=== PATIENT | male | born 1990 | race Two or more races ===

== ENCOUNTER 2019-09-12 14:27 | Inpatient (IN) | payer OTHER ==
[~2019-09-12] VITALS: Ht 177.8 cm; Wt 134.6 kg
[2019-09-12] MEDS ORDERED: LISI-167 PO (14:47)
[2019-09-12 14:50] LABS: BASOPHILS % (AUTO) 1 % (0-1); EOSINOPHILS # (AUTO) 0.14 x10^3/uL (0-0.4); EOSINOPHILS % (AUTO) 1 % (1-7); LYMPHOCYTES # (AUTO) 2.85 x10^3/uL (1-3.4); LYMPHOCYTES % (AUTO) 23 % (22-44); MD NO; MEAN CORPUSCULAR HEMOGLOBIN 27.5 pg (27.5-34.5); MEAN CORPUSCULAR HGB CONC 32.8 g/dL (33.2-36.2); MEAN CORPUSCULAR VOLUME 83.7 fL (81-97); MEAN PLATELET VOLUME 8.9 fL (7.4-10.4); MONOCYTES % (AUTO) 4 % (2-9); NEUTROPHILS # (AUTO) 8.81 x10^3/uL (1.8-6.8); NEUTROPHILS % (AUTO) 71 % (42-75); PLATELET COUNT 311 x10^3/uL (130-400); RED BLOOD COUNT 6.25 x10^6/uL (4.38-5.82); RED CELL DISTRIBUTION WIDTH 14.5 % (9.4-14.8)
[2019-09-12 15:03] LABS: ANION GAP 7 mmol/L (5-15); CALCIUM 8.8 mg/dL (8.5-10.1); CHLORIDE 105 mmol/L (98-107); CREATININE 1.18 mg/dL (0.7-1.3)
[2019-09-12 15:07] LABS: TROPONIN I < 0.015 ng/mL (0.000-0.045)
[2019-09-12] MEDS ORDERED: ENALAPRILAT 1.25 MG/ML, 1ML ONE (15:14)
[2019-09-12] MEDS ORDERED: hydrALAzine 20 MG/ML, 1ML ONE ×2 (15:14→16:39)
[2019-09-12] MEDS ORDERED: ASPIRIN 81 MG TABLET CHEW ONE (15:14)
--- NOTE | 2019-09-12 15:29 | NUR ---
IV START, LABS SENT, MEDS ADMINISTERED, REPORT TO JANETH CARTER. AWARE OF NITRO ORDER SHOULD OTHER BP MEDS NOT WORK. PT SITTING UP IN BED WATCHING TELEVISION.
[2019-09-12] MEDS ORDERED: SODIUM CHLORIDE FLUSH 10ML SYR IVF ONE (15:30)
[2019-09-12] MEDS ORDERED: hydrALAzine 20 MG/ML, 1ML IV ONE ×2 (15:30→17:00)
[2019-09-12] MEDS ORDERED: ENALAPRILAT 1.25 MG/ML, 2ML IV ONE (15:30)
[2019-09-12] MEDS ORDERED: ASPIRIN 81 MG TABLET CHEW PO ONE (15:30)
[2019-09-12] MEDS ORDERED: NITROGLYCERIN SINGLE TAB 0.4 MG SL PRN (15:30)
[2019-09-12] MEDS ORDERED: NITROGLYCERIN SINGLE TAB 0.4 MG SL ONE (15:50)
--- NOTE | 2019-09-12 15:51 | NUR ---
REPORT RECEIVED EUFEMIA. NITRO PER NOV. PT STS HIS NORMAL BP IS 170/90. DENIES BLURRY VISION/DIZZY/BRYSON. CALL CHOU IN REACH.
--- NOTE | 2019-09-12 16:43 | NUR ---
BP HIGH, MD NOTIFIED, ANTICIAPTE ADMIT. CONTINUES TO DENY DIZZY/BLURRY VISION/NAUSEA.
--- NOTE | 2019-09-12 17:11 | NUR ---
2ND DOSE HYDRALAZINE, PT TO BE ADMITTED.
--- NOTE | 2019-09-12 17:49 | NUR ---
BP SLIGHTLY IMPROVED, ASYMPTOMATIC. PT TO BE ADMITTED, AWARE AND AGREES.
[2019-09-12] MEDS ORDERED: SODIUM CHLORIDE FLUSH 10ML SYR IVF PRN (18:00)
--- NOTE | 2019-09-12 18:56 | NUR ---
REPORT TO JLUIS FOWLER.
[2019-09-12] MEDS ORDERED: NITROGLYCERIN 0.4 MG/SPRAY SL PRN (19:30)
[2019-09-12] MEDS ORDERED: ENALAPRILAT 1.25 MG/ML, 2ML IVPush PRN (19:30)
[2019-09-12] MEDS ORDERED: hydrALAzine 20 MG/ML, 1ML IVPush PRN (19:30)
[2019-09-12] MEDS ORDERED: MORPHINE SULFATE 4 MG/ML, 1ML IVPush PRN (19:30)
[2019-09-12] MEDS ORDERED: LABETALOL 5MG/ML, 20ML IVPush PRN (19:30)
[2019-09-12] MEDS ORDERED: POTASSIUM CHLORIDE 20 MEQ TAB.ER.PRT PO ONE (19:30)
[2019-09-12] MEDS ORDERED: NITROGLYCERIN 0.4 MG BOTTLE (25 TABS) SL PRN (19:30)
[2019-09-12] MEDS ORDERED: ACETAMINOPHEN 325 MG TABLET PO PRN (19:30)
[2019-09-12] MEDS ORDERED: PROMETHAZINE 25 MG/ML, 1ML IM PRN (19:30)
[2019-09-12] MEDS ORDERED: MAGNESIUM SULFATE PMX 2GM/50ML 50 ML IV ONE (19:34)
[2019-09-12 20:21] VITALS: BP 179/95
[2019-09-12 20:38] LABS: TROPONIN I 0.051 ng/mL (0.000-0.045)
[2019-09-12] MEDS: ENOXAPARIN 40 MG/0.4 ML SQ SCH (20:45)
[2019-09-12] MEDS ORDERED: LISINOPRIL 10 MG TABLET PO SCH (21:00)
[2019-09-12 21:56] LABS: MICROSCOPIC AUTO
[2019-09-12 22:00] LABS: CULTURE INDICATED? NO
[2019-09-12] MEDS ORDERED: OMNIPAQUE 350 MG/ML, 100ML BOTTLE ONE (23:18)
[2019-09-12] MEDS ORDERED: FLU VACC QS2019-20 36MOS UP/PF 0.5 ML IM-VACC ONE (23:30)
[2019-09-13 00:15] VITALS: BP 158/101
[2019-09-13 01:53] LABS: BASOPHILS # (AUTO) 0.07 x10^3/uL (0-0.1); BASOPHILS % (AUTO) 1 % (0-1); EOSINOPHILS % (AUTO) 3 % (1-7); LYMPHOCYTES # (AUTO) 2.69 x10^3/uL (1-3.4); LYMPHOCYTES % (AUTO) 23 % (22-44); MD NO; MEAN CORPUSCULAR HEMOGLOBIN 27.3 pg (27.5-34.5); MEAN CORPUSCULAR HGB CONC 33.4 g/dL (33.2-36.2); MEAN CORPUSCULAR VOLUME 81.9 fL (81-97); MEAN PLATELET VOLUME 9.2 fL (7.4-10.4); MONOCYTES # (AUTO) 0.68 x10^3/uL (0.2-0.8); MONOCYTES % (AUTO) 6 % (2-9); NEUTROPHILS # (AUTO) 7.89 x10^3/uL (1.8-6.8); NEUTROPHILS % (AUTO) 68 % (42-75); PLATELET COUNT 269 x10^3/uL (130-400); RED BLOOD COUNT 5.85 x10^6/uL (4.38-5.82); RED CELL DISTRIBUTION WIDTH 14.6 % (9.4-14.8)
[2019-09-13 02:06] LABS: ALANINE AMINOTRANSFERASE 39 U/L (12-78); ALBUMIN 3.3 g/dL (3.4-5.0); ANION GAP 8 mmol/L (5-15); CALCIUM 8.5 mg/dL (8.5-10.1); CHLORIDE 105 mmol/L (98-107); CREATININE 1.04 mg/dL (0.7-1.3)
[2019-09-13 02:14] LABS: ALKALINE PHOSPHATASE 81 U/L (45-117); BILIRUBIN,TOTAL 0.7 mg/dL (0.2-1.0); CHOL/HDL RATIO 5.8; CHOLESTEROL, TOTAL 203 mg/dL (140-239); HDL CHOL % 17 % (26-37); HDL CHOLESTEROL (DIRECT) 35 mg/dL (40-60); TOTAL PROTEIN 7.3 g/dL (6.4-8.2); TRIGLYCERIDES 413 mg/dL (50-200)
[2019-09-13 08:21] VITALS: BP 159/101
[2019-09-13] MEDS ORDERED: REGADENOSON 0.4 MG/5 ML SYRINGE ONE (08:50)
[2019-09-13] MEDS: LISINOPRIL 20 MG TABLET PO SCH ×2 (09:11→20:27)
[2019-09-13] MEDS: ASPIRIN 81 MG TABLET CHEW PO SCH (09:11)
[2019-09-13 13:13] VITALS: BP 166/91
[2019-09-13] MEDS ORDERED: POTASSIUM CHLORIDE 20 MEQ TAB.ER.PRT ONE (15:04)
[2019-09-13] MEDS: POTASSIUM CHLORIDE 20 MEQ TAB.ER.PRT PO SCH ×2 (15:08→17:13)
[2019-09-13 18:09] LABS: CHLORIDE,URINE RANDOM 22 mmol/L; POTASSIUM,URINE RANDOM 11 mmol/L; SODIUM,URINE RANDOM 29 mmol/L
[2019-09-13 19:14] VITALS: BP 165/109
[2019-09-13] MEDS: ENOXAPARIN 40 MG/0.4 ML SQ SCH (20:27)
[2019-09-14 02:09] VITALS: BP 134/84
[2019-09-14 07:03] LABS: BASOPHILS # (AUTO) 0.04 x10^3/uL (0-0.1); BASOPHILS % (AUTO) 0 % (0-1); EOSINOPHILS # (AUTO) 0.37 x10^3/uL (0-0.4); EOSINOPHILS % (AUTO) 4 % (1-7); LYMPHOCYTES # (AUTO) 1.88 x10^3/uL (1-3.4); LYMPHOCYTES % (AUTO) 19 % (22-44); MD NO; MEAN CORPUSCULAR HEMOGLOBIN 27.5 pg (27.5-34.5); MEAN CORPUSCULAR HGB CONC 33.3 g/dL (33.2-36.2); MEAN CORPUSCULAR VOLUME 82.6 fL (81-97); MEAN PLATELET VOLUME 9.4 fL (7.4-10.4); MONOCYTES # (AUTO) 0.57 x10^3/uL (0.2-0.8); MONOCYTES % (AUTO) 6 % (2-9); NEUTROPHILS % (AUTO) 70 % (42-75); PLATELET COUNT 240 x10^3/uL (130-400); RED BLOOD COUNT 5.56 x10^6/uL (4.38-5.82); RED CELL DISTRIBUTION WIDTH 14.4 % (9.4-14.8)
[2019-09-14 07:19] LABS: CHLORIDE 108 mmol/L (98-107)
[2019-09-14 07:28] VITALS: BP 122/80
[2019-09-14] MEDS: POTASSIUM CHLORIDE 20 MEQ TAB.ER.PRT PO SCH (07:32)
[2019-09-14] MEDS: ASPIRIN 81 MG TABLET CHEW PO SCH (07:33)
[2019-09-14 07:36] LABS: ANION GAP 6 mmol/L (5-15); CALCIUM 8.8 mg/dL (8.5-10.1); CREATININE 1.18 mg/dL (0.7-1.3)
[2019-09-14] MEDS ORDERED: POTASSIUM CHLORIDE 20 MEQ TAB.ER.PRT PO ONE ×2 (08:30→11:30)
[2019-09-14] MEDS: LISINOPRIL 20 MG TABLET PO SCH ×2 (09:15→20:57)
[2019-09-14 14:02] VITALS: BP 147/75
[2019-09-14] MEDS: SPIRONOLACTONE 25 MG TABLET PO SCH (15:35)
[2019-09-14 19:02] VITALS: BP 148/91
[2019-09-14] MEDS: ENOXAPARIN 40 MG/0.4 ML SQ SCH (20:57)
[2019-09-15 01:28] VITALS: BP 130/84
[2019-09-15 05:52] LABS: BASOPHILS # (AUTO) 0.03 x10^3/uL (0-0.1); BASOPHILS % (AUTO) 0 % (0-1); EOSINOPHILS # (AUTO) 0.42 x10^3/uL (0-0.4); EOSINOPHILS % (AUTO) 4 % (1-7); LYMPHOCYTES # (AUTO) 2.41 x10^3/uL (1-3.4); LYMPHOCYTES % (AUTO) 24 % (22-44); MD NO; MEAN CORPUSCULAR HEMOGLOBIN 27.6 pg (27.5-34.5); MEAN CORPUSCULAR HGB CONC 33.3 g/dL (33.2-36.2); MEAN PLATELET VOLUME 9.3 fL (7.4-10.4); MONOCYTES # (AUTO) 0.58 x10^3/uL (0.2-0.8); MONOCYTES % (AUTO) 6 % (2-9); NEUTROPHILS # (AUTO) 6.42 x10^3/uL (1.8-6.8); NEUTROPHILS % (AUTO) 65 % (42-75); PLATELET COUNT 231 x10^3/uL (130-400); RED BLOOD COUNT 5.29 x10^6/uL (4.38-5.82); RED CELL DISTRIBUTION WIDTH 14.7 % (9.4-14.8)
[2019-09-15 06:03] LABS: ANION GAP 7 mmol/L (5-15); CALCIUM 8.2 mg/dL (8.5-10.1); CHLORIDE 107 mmol/L (98-107); CREATININE 1.27 mg/dL (0.7-1.3)
[2019-09-15 08:25] VITALS: BP 125/78
[2019-09-15] MEDS ORDERED: POTASSIUM CHLORIDE 20 MEQ TAB.ER.PRT PO ONE ×2 (08:30→11:30)
[2019-09-15] MEDS: ASPIRIN 81 MG TABLET CHEW PO SCH (08:54)
[2019-09-15] MEDS: SPIRONOLACTONE 25 MG TABLET PO SCH (08:54)
[2019-09-15] MEDS: LISINOPRIL 20 MG TABLET PO SCH (08:55)
[2019-09-15] MEDS ORDERED: LISI-170 PO (10:39)
[2019-09-15] MEDS ORDERED: SPIR25TA PO (10:39)
== END 2019-09-15 13:00 | disposition home or self-care (01) | DRG 313 ==
LOC: SUATTDRO 17:58 → ED 18:19 → EDIP 19:11 → 5SO 19:15 → DCLOUNGE 09-15 12:55
PROVIDERS: ADMIT Internal Medicine; ATTEND Hospitalist
DX: R07.89 Other chest pain (principal); I16.9 Hypertensive crisis, unspecified; R65.10 Systemic inflammatory response syndrome (SIRS) of non-infectious origin without acute organ dysfunction; D72.829 Elevated white blood cell count, unspecified; E78.1 Pure hyperglyceridemia; E78.5 Hyperlipidemia, unspecified; E87.6 Hypokalemia; G47.33 Obstructive sleep apnea (adult) (pediatric); I10 Essential (primary) hypertension; Z79.899 Other long term (current) drug therapy; Z82.49 Family history of ischemic heart disease and other diseases of the circulatory system; Z83.3 Family history of diabetes mellitus; Z91.14 Patient's other noncompliance with medication regimen; Z88.8 Allergy status to other drugs, medicaments and biological substances; Z91.19 Patient's noncompliance with other medical treatment and regimen
CPT/HCPCS: 0399T; 36415; 71046; 71275; 78452; 80048; 80053; 80061; 81001; 82088; 82436; 82533; 83036; 83735; 84100; 84133; 84244; 84300; 84439; 84443; 84484; 85025; 90686; 93005; 93017; 93306; 93975; 94660; G0378; J1650; J2785; Q9967; A9502; J0360; J3475